=== PATIENT | male | born 1985 | race American Indian/Alaskan Native ===

== ENCOUNTER 2018-11-28 14:28 | Emergency (ER) | payer SELFPAY ==
[2018-11-28] MEDS ORDERED: NACL 0.9% 1000 ML 1,000 ML IV ONE ×2 (16:28→17:29)
--- NOTE | 2018-11-28 16:29 | Emergency Department Report ---
- General Chief complaint: Weakness Stated complaint: DEHYDRATION Time Seen by Provider: 11/28/18 16:10 Source: patient Mode of arrival: Ambulatory Limitations: No Limitations - History of Present Illness Initial comments: Patient is a 32-year-old male who presents emergency room with complaints of weakness, lightheadedness, near syncope, fatigue and dizziness. Patient states his symptoms started 3 hours ago. Patient states his symptoms are improving. Patient states his symptoms started when he was outside and he and had drank enough water. Patient states it feels like he has heat exhaustion again. Patient states he has heat exhaustion 3 years ago with similar symptoms. Patient denies chest pain shortness of breath. Patient denies fever chills. Patient denies lost consciousness. MD Complaint: generalized weakness -: Sudden Location: generalized Severity: severe Consistency: other (improving) Improves with: rest Worsens with: movement, exertion Associated Symptoms: denies: chest pain, confusion, dark stools, diaphoresis, dysuria, easy bruising, fever/chills, headaches, loss of appetite, nausea/vomiting, myalgias, rash, shortness of breath, syncope ED Review of Systems ROS: Stated complaint: DEHYDRATION Other details as noted in HPI Constitutional: weakness. denies: chills, fever Eyes: denies: eye pain, eye discharge, vision change ENT: denies: ear pain, throat pain Respiratory: denies: cough, shortness of breath, wheezing Cardiovascular: denies: chest pain, palpitations Endocrine: no symptoms reported Gastrointestinal: denies: abdominal pain, nausea, diarrhea Genitourinary: denies: urgency, dysuria Musculoskeletal: denies: back pain, joint swelling, arthralgia Skin: denies: rash, lesions Neurological: weakness. denies: headache, paresthesias Psychiatric: denies: anxiety, depression Hematological/Lymphatic: denies: easy bleeding, easy bruising ED Past Medical Hx - Past Medical History Previous Medical History?: No Additional medical history: muscle spasm and strain. - Surgical History Past Surgical History?: No - Family History Family history: no significant - Social History Smoking Status: Never Smoker Substance Use Type: None ED Physical Exam - General Limitations: No Limitations General appearance: alert, in no apparent distress - Head Head exam: Present: atraumatic, normocephalic - Eye Eye exam: Present: normal appearance, PERRL Pupils: Present: normal accommodation - ENT ENT exam: Present: mucous membranes dry - Neck Neck exam: Present: normal inspection - Respiratory Respiratory exam: Present: normal lung sounds bilaterally. Absent: respiratory distress, wheezes, rales - Cardiovascular Cardiovascular Exam: Present: regular rate, normal rhythm. Absent: systolic murmur, diastolic murmur, rubs, gallop - GI/Abdominal GI/Abdominal exam: Present: soft, normal bowel sounds. Absent: distended, tenderness, guarding - Rectal Rectal exam: Present: deferred - Extremities Exam Extremities exam: Present: normal inspection - Back Exam Back exam: Present: normal inspection - Neurological Exam Neurological exam: Present: alert, oriented X3 - Psychiatric Psychiatric exam: Present: normal affect, normal mood - Skin Skin exam: Present: warm, dry, intact, normal color. Absent: rash - Assessment Assessment Interval: Baseline - Level of Consciousness 1a. Level of Consciousness: alert/keenly responsive - LOC Questions 1b. LOC Questions: answers both correctly - LOC Command 1c. LOC Commands: performs tasks correctly - Best Gaze 2. Best Gaze: normal - Visual 3. Visual: no visual loss - Facial Palsy 4. Facial Palsy: normal symmetrical movement - Motor Arm 5a. Motor Arm Left: no drift 5b. Motor Arm Right: no drift - Motor Leg 6a. Motor Leg Left: no drift 6b. Motor Leg Right: no drift - Limb Ataxia 7. Limb Ataxia: absent - Sensory 8. Sensory: normal - Best Language 9. Best Language: no aphasia - Dysarthria 10. Dysarthria: normal - Extinction and Inattention 11. Extinction/Inattention: no abnormality - Scoring Total Score: 0 Stroke Severity: No Stroke Symptoms ED Course Vital Signs 11/28/18 11/28/18 11/28/18 15:46 15:51 16:01 Temperature 98.1 F 98.1 F Pulse Rate 89 96 H 90 Respiratory 16 21 14 Rate Blood Pressure 110/71 110/71 101/66 Blood Pressure 110/71 [Left] O2 Sat by Pulse 100 100 100 Oximetry 11/28/18 11/28/18 11/28/18 17:01 18:01 18:41 Temperature 98.1 F Pulse Rate 86 75 75 Respiratory 15 13 13 Rate Blood Pressure 100/67 108/66 Blood Pressure 108/66 [Left] O2 Sat by Pulse 100 100 100 Oximetry - Reevaluation(s) Reevaluation #1: I discussed all results with patient. Patient has had 1 L. Patient will receive another liter. Patient tolerating by mouth intake. I discussed plan of care with patient. Patient is stable for discharge. Patient will be discharged home. Patient agrees plan of care. Patient given discharge instructions. Patient given follow-up instructions. Patient voiced understanding of instructions. 11/28/18 18:09 ED Medical Decision Making - Lab Data Result diagrams: 11/28/18 16:33 11/28/18 16:33 - EKG Data -: EKG Interpreted by Me EKG shows normal: sinus rhythm, axis, intervals, QRS complexes, ST-T waves Rate: normal - EKG Data Interpretation: LVH, other (incomplete right bundle-branch block noted. Findings consistent with LVH noted.) - Medical Decision Making Patient is a 32-year-old male presents to emergency with complaints of weakness, dizziness, near syncope. Findings discussed with heat exhaustion. Patient given 2 L of fluid and symptoms improved. Patient also tolerated by mouth intake. Patient's labs consistent with dehydration. Patient given discharge instructions. Patient advised to avoid strenuous activity and activities outdoors until cleared by primary care. Patient also advised to increase water. - Differential Diagnosis exhaustion. Weakness. Dizziness. Dehydration. Critical Care Time: Yes Critical care attestation.: If time is entered above; I have spent that time in minutes in the direct care of this critically ill patient, excluding procedure time. Critical Care Time: 35 minutes ED Disposition Clinical Impression: Near syncope, Dehydration, Dizziness Heat exhaustion Qualifiers: Encounter type: initial encounter Qualified Code(s): T67.5XXA - Heat exhaustion, unspecified, initial encounter Disposition: TO HOME OR SELFCARE Is pt being admited?: No Does the pt Need Aspirin: No Condition: Stable Instructions: Dehydration (ED), Heat Exhaustion (ED), Fatigue (ED) Additional Instructions: Patient to follow up with primary care in 2-3 days. Patient to increase water. Patient to return to ER if condition worsens. Patient to rest. Patient to avoid activities in the heat. Patient to avoid strenuous exercise and activity until cleared by primary care. Referrals: BETH JAMES MD [Primary Care Provider] - 2-3 Days Time of Disposition: 18:12
[2018-11-28 16:57] LABS: Basophils % (Auto) 0.4 % (0.0-1.8); Eosinophils # (Auto) 0.1 K/mm3 (0.0-0.4); Hematocrit 41.6 % (35.5-45.6); Hemoglobin 14.1 gm/dl (11.8-15.2); Lymphocytes # (Auto) 0.6 K/mm3 (1.2-5.4); Lymphocytes % (Auto) 7.6 % (13.4-35.0); Mean Corpuscular HGB Conc 34 % (32-34); Mean Corpuscular Volume 90 fl (84-94); Monocytes # (Auto) 0.4 K/mm3 (0.0-0.8); Monocytes % (Auto) 5.2 % (0.0-7.3); Platelet Count 155 K/mm3 (140-440); Red Blood Count 4.63 M/mm3 (3.65-5.03); Red Cell Distribution Width 12.5 % (13.2-15.2)
[2018-11-28 17:01] LABS: Alanine Aminotransferase 20 units/L (7-56); Albumin 4.5 g/dL (3.9-5); BUN/Creatinine Ratio 11; Blood Urea Nitrogen 10 mg/dL (9-20); Calcium 9.2 mg/dL (8.4-10.2); Hemolysis Index 12
[2018-11-28 18:30] VITALS: BP 108/66
== END 2018-11-28 18:54 | disposition home or self-care (01) ==
LOC: ED 14:28
DX: T67.5XXA Heat exhaustion, unspecified, initial encounter (principal); E86.0 Dehydration; X58.XXXA Exposure to other specified factors, initial encounter; Y93.89 Activity, other specified; Y92.89 Other specified places as the place of occurrence of the external cause; Y99.8 Other external cause status
CPT/HCPCS: 36415; 80053; 82550; 84484; 85025; 93005; 93010; 96360; 96361; 99284; J7030

== ENCOUNTER 2021-02-01 10:25 | Emergency (ER) | payer SELFPAY ==
[2021-02-01 10:33] VITALS: BP 110/76
--- NOTE | 2021-02-01 11:41 | Emergency Department Report ---
ED ENT HPI - General Chief complaint: Earache Stated complaint: LT EAR PAIN,OFF BALANCE,LIGHT HEADED Time Seen by Provider: 02/01/21 11:00 Source: patient Mode of arrival: Ambulatory Limitations: No Limitations - History of Present Illness Initial comments: 35-year-old male, no past medical history, presents to ED with left ear pain x4 days. Patient reports relief with Tylenol. He denies any fever, headache, toothache, discharge from the ear. MD complaint: ear pain -: days(s) (4) Location: L ear Severity: mild Quality: sharp Consistency: intermittent Improves with: other (Tylenol) Worsens with: none Associated Symptoms: denies: fever, cough, toothache, sore throat, hearing loss, discharge from ear, rhinorrhea - Related Data Previous Rx's Medication Instructions Recorded Last Taken Type Naproxen [Naprosyn] 500 mg PO BID #20 tablet 02/01/21 Unknown Rx Allergies Allergy/AdvReac Type Severity Reaction Status Date / Time No Known Allergies Allergy Verified 02/01/21 10:29 ED Dental HPI - General Chief complaint: Earache Stated complaint: LT EAR PAIN,OFF BALANCE,LIGHT HEADED Time Seen by Provider: 02/01/21 11:00 Source: patient Mode of arrival: Ambulatory Limitations: No Limitations - Related Data Previous Rx's Medication Instructions Recorded Last Taken Type Naproxen [Naprosyn] 500 mg PO BID #20 tablet 02/01/21 Unknown Rx Allergies Allergy/AdvReac Type Severity Reaction Status Date / Time No Known Allergies Allergy Verified 02/01/21 10:29 ED Review of Systems ROS: Stated complaint: LT EAR PAIN,OFF BALANCE,LIGHT HEADED Other details as noted in HPI Comment: All other systems reviewed and negative Constitutional: denies: chills, fever ENT: ear pain. denies: congestion Respiratory: denies: cough Neurological: denies: headache ED Past Medical Hx - Past Medical History Previous Medical History?: No Additional medical history: muscle spasm and strain. - Surgical History Past Surgical History?: No - Social History Smoking Status: Never Smoker Substance Use Type: None - Medications Home Medications: Home Medications Medication Instructions Recorded Confirmed Last Taken Type Naproxen [Naprosyn] 500 mg PO BID #20 tablet 02/01/21 Unknown Rx ED Physical Exam - General Limitations: No Limitations General appearance: alert, in no apparent distress - Head Head exam: Present: atraumatic, normocephalic - Eye Eye exam: Present: normal appearance, PERRL, EOMI - ENT ENT exam: Present: mucous membranes moist, TM's normal bilaterally, other (No mastoid tenderness) - Neck Neck exam: Present: normal inspection, full ROM. Absent: tenderness, meningismus - Respiratory Respiratory exam: Present: normal lung sounds bilaterally. Absent: respiratory distress - Cardiovascular Cardiovascular Exam: Present: regular rate, normal rhythm - GI/Abdominal GI/Abdominal exam: Absent: distended - Extremities Exam Extremities exam: Present: normal inspection - Neurological Exam Neurological exam: Present: alert, oriented X3 - Psychiatric Psychiatric exam: Present: normal affect, normal mood - Skin Skin exam: Present: warm, dry, intact, normal color ED Course Vital Signs 02/01/21 02/01/21 02/01/21 10:29 10:32 12:06 Temperature 98 F 98 F Pulse Rate 86 86 Respiratory 16 14 16 Rate Blood Pressure 110/76 110/76 [Left] O2 Sat by Pulse 99 100 Oximetry ED Medical Decision Making - Differential Diagnosis Otitis media, otalgia, toothache Critical care attestation.: If time is entered above; I have spent that time in minutes in the direct care of this critically ill patient, excluding procedure time. ED Disposition Clinical Impression: Otalgia of left ear Disposition: 01 HOME / SELF CARE / HOMELESS Is pt being admited?: No Condition: Stable Instructions: Earache, Adult Prescriptions: Naproxen [Naprosyn] 500 mg PO BID #20 tablet Referrals: CYRUS PATTERSON MD [Referring] - as needed [facility] [Provider Group] - 3-5 Days Time of Disposition: 11:40
== END 2021-02-01 12:06 | disposition home or self-care (01) ==
LOC: ED 10:25
DX: H92.02 Otalgia, left ear (principal)
CPT/HCPCS: 99282